=== PATIENT | male | born 1960 | race Caucasian/White ===

== ENCOUNTER 2017-07-21 05:38 | Inpatient (IN) | payer BC ==
[~2017-07-21] VITALS: Ht 177.8 cm; Wt 68.9 kg
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
[2017-07-24] MEDS ORDERED: ZESTRIL DPS10 MG PO (14:03)
[2017-07-24] MEDS ORDERED: COMBIVENT RESPIM4 GM IH (14:04)
[2017-07-24] MEDS ORDERED: HYDROCODON-ACE1 EAC2 PO (14:04)
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
== END 2017-07-23 12:50 | disposition home or self-care (01) | DRG 516 ==
LOC: SSS 05:38 → 5MS 10:59 → SSS 12:59 → 5MS 13:14 → SSS 14:32 → 5MS 07-22 08:45
PROVIDERS: ADMIT Orthopaedic Surgery
PROC: 0PS904Z Reposition Right Clavicle with Internal Fixation Device, Open Approach (ICD-10-PCS; principal; 2017-07-21)
PROC: 0PU Upper Bones, Supplement (ICD-10-PCS; principal; 2017-07-21)
DX: S42.021A Displaced fracture of shaft of right clavicle, initial encounter for closed fracture (principal); S27.0XXA Traumatic pneumothorax, initial encounter; J91.8 Pleural effusion in other conditions classified elsewhere; S22.41XA Multiple fractures of ribs, right side, initial encounter for closed fracture; E80.1 Porphyria cutanea tarda; S22.39XA Fracture of one rib, unspecified side, initial encounter for closed fracture; V86.59XA Driver of other special all-terrain or other off-road motor vehicle injured in nontraffic accident, initial encounter; I10 Essential (primary) hypertension; B19.20 Unspecified viral hepatitis C without hepatic coma; F17.210 Nicotine dependence, cigarettes, uncomplicated